=== PATIENT | female | born 1950 | race Caucasian/White ===

== ENCOUNTER → 2022-05-10 | Day surgery (SDC) | payer MEDICARE ==
[~2022-05-10] MED LIST: Iopamidol-M 200 41% 10 ML VIAL FS ONE; Sodium Bicarbonate 2.5 MEQ/5 ML VIAL ONE
== END ==
LOC: CSHRAD 09:36
PROVIDERS: ATTEND Surgery
PROC: B02BYZZ Computerized Tomography (CT Scan) of Spinal Cord using Other Contrast (ICD-10-PCS; principal; 2022-05-10)
DX: M43.16 Spondylolisthesis, lumbar region (principal); M54.16 Radiculopathy, lumbar region; M48.062 Spinal stenosis, lumbar region with neurogenic claudication; M54.30 Sciatica, unspecified side; M54.12 Radiculopathy, cervical region; M50.20 Other cervical disc displacement, unspecified cervical region; M48.02 Spinal stenosis, cervical region
CPT/HCPCS: 62304; 72132; Q9966

== ENCOUNTER 2023-02-04 12:16 | Outpatient (CLI) | payer MEDICARE | END 2023-02-04 12:17 | disposition home or self-care (01) | LOC: CSHULT 12:16 | PROVIDERS: ATTEND Internal Medicine Gastroenterology | DX: R10.13 Epigastric pain (principal); R16.0 Hepatomegaly, not elsewhere classified; K76.9 Liver disease, unspecified | CPT/HCPCS: 76705 ==